=== PATIENT | female | born 1975 | race Caucasian/White ===

== ENCOUNTER 2016-07-13 16:16 | Day surgery (SDC) | payer BC, MEDICAID ==
[2016-07-13 16:45] LABS: Hematocrit 35.4 % (37.0-47.0); Mean Cell Volume 95.2 fl (78-100); Mean Corpuscular Hemoglobin 32.3 pg (27-31); Mean Corpuscular Hgb Conc 33.9 g/dl (32-36); Mean Platelet Volume 9.9 fl (6.0-9.5); Neutrophil # 2.1 K/mm3 (1.3-6.0); Neutrophil % 41.1 % (42-75.0); Platelet Count 224 K/mm3 (150-450); Red Blood Count 3.72 M/mm3 (4.2-5.4); Red Cell Distribution Width 12.5 % (11.5-14.0); White Blood Count 5.2 K/mm3 (4.0-10.5)
--- NOTE | 2016-07-13 16:48 | ERNOTE ---
ER Female HPI Date of Service: 07/13/16 Stated Complaint: ABNORMAL PERIOD Presenting Symptoms: pelvic pain, vaginal bleeding Time Seen by Provider: 07/13/16 16:23 Source: patient Exam Limitations: no limitations Immunizations: IMMUNIZATION HX Immunizations Up to Date Yes History of Influenza Vaccine Yes Hx Pneumococcal Vaccination No Allergies/Adverse Reactions: Allergies acetaminophen [From Percocet] Allergy (Unknown, Verified 04/13/16 12:49) oxycodone HCl [From Percocet] Allergy (Unknown, Verified 04/13/16 12:49) amoxicillin trihydrate [From Augmentin] Allergy (Verified 04/13/16 12:49) bacitracin [From Cortisporin] Allergy (Verified 04/13/16 12:49) bacitracin zinc [From Cortisporin] Allergy (Verified 04/13/16 12:49) hydrocortisone [From Cortisporin] Allergy (Verified 04/13/16 12:49) neomycin [From Cortisporin] Allergy (Verified 04/13/16 12:49) neomycin sulfate [From Cortisporin] Allergy (Verified 04/13/16 12:49) polymyxin B [From Cortisporin] Allergy (Verified 04/13/16 12:49) polymyxin B sulfate [From Cortisporin] Allergy (Verified 04/13/16 12:49) potassium clavula *RETIRED-11/25/12 [From Augmentin] Allergy (Verified 04/13/16 12:49) Sulfa (Sulfonamide Antibiotics) [Sulfa(Sulfonamide Antibiotics)] Allergy ( Verified 04/13/16 12:49) erythromycin base Adverse Reaction (Verified 04/13/16 12:49) Vomiting Home Medications: HOME MEDICATIONS Valacyclovir HCl [Valtrex] 1,000 mg PO DAILY 01/31/14 [Last Taken 11/20/14 08:00 ] Lansoprazole [Prevacid] 30 mg PO DAILY 09/07/15 [Last Taken Unknown] Levofloxacin [Levaquin] 500 mg PO DAILY 04/06/16 [Last Taken Unknown] Metoprolol Tartrate [Lopressor] 12.5 mg PO DAILY 04/06/16 [Last Taken Unknown] Gabapentin [Neurontin] 400 mg PO HS 04/13/16 [Last Taken Unknown] Guaifenesin/Codeine Phosphate [Guaifenesin-Codeine Liquid] 10 ml PO QID #118 liquid 04/13/16 [Last Taken Unknown] Levonorgestrel-Ethin Estradiol [Jolessa] 1 each PO DAILY 04/13/16 [Last Taken Unknown] Methylprednisolone [Medrol Dosepak] 1 mg PO DAILY #20 tab.ds.pk 04/13/16 [Last Taken Unknown] - History of Present Illness Narrative: Pt. comes in with c/o RLQ pin and severe vaginal bleeding since this morning. Pt. states that from the time she awoke to 12 noon she was soaking a pad or tampon every hour then after 12 noon was soaking a pad and tampon every 10 minutes. Pt. recently restarted her birthcontrol and had a period a week ago. Pt. denies any NVD or constipation. Pt. denies any recent illness, SOB, CP, prehospital treatment, alleviating factors, or aggravating factors. Pt. does state that she developed dizziness prior to arrival. Review of Systems - Review of Systems Constitutional: Present: no symptoms reported. Absent: recent illness, fever, chills, weakness, fatigue, malaise EYE: Present: no symptoms reported ENT: Present: no symptoms reported Respiratory: Present: no symptoms reported. Absent: shortness of breath, cough , wheezing Cardiology: Present: no symptoms reported. Absent: chest pain, palpitations, edema Gastrointestinal/Abdominal: Present: abdominal pain - RLQ. Absent: nausea, vomiting, diarrhea Genitourinary: Present: discharge - blood Musculoskeletal: Present: no symptoms reported. Absent: back pain, joint pain Skin: Present: no symptoms reported. Absent: rash, change in color Neurological: Present: no symptoms reported. Absent: headache, dizziness/light- headedness, numbness, tingling All Other Systems: All systems neg except as marked - Patient's Past Medical History Patient History - Medical: Anemia, GERD, Migraines Patient History - Cardiac/Respiratory: No pertinent hx Patient History - Cancer: No Hx of Cancer Patient History - Surgical Procedures: , D & C, Ear Tubes, Other Patient History - Other: None LMP (females 10-50): now LMP (Calendar): 04/04/16 - Social History Living Situations: home Abuse History: No History of abuse Psych History: Hx of Anxiety Smoking Status: Former smoker Alcohol Use: none Drug Use: none - Immunizations Immunizations Up to Date: Yes Hx Pneumococcal Vaccination: No History of Influenza Vaccine: Yes Physical Exam - Physical Exam General Appearance: Present: wd/wn, alert, no apparent distress Eye Exam: Normal inspection: bilateral, PERRL: bilateral, EOMI: bilateral Ears, Nose, Throat: Present: normal ENT inspection, normal pharynx Neck: Present: normal inspection, nontender. Absent: lymphadenopathy (R), lymphadenopathy (L) Respiratory: Present: no respiratory distress, normal breath sounds, no accessory muscle use, chest nontender, lungs clear Cardiovascular/Chest: Present: regular rate, rhythm, no murmur, normal peripheral pulses Gastrointestinal/Abdominal: Present: normal bowel sounds, tenderness - RLQ. Absent: distended, rebound, McBurney sign, Obturator sign, Radford sign, Psoas sign, mass, hernia Back Exam: Present: normal inspection, normal range of motion, no CVA tenderness , no vertebral tenderness Extremity Exam: Present: normal inspection, non-tender, normal range of motion, no edema Neurological Exam: Present: alert, oriented, normal mood/affect, no motor/ sensory deficits Skin Exam: Present: normal color, warm/dry. Absent: pallor, skin rash ED Progress - Date and Time Seen: Date and Time: 07/13/16 19:26 Pt. orthostatic BP 130 systolic sitting 122 systolic lying and 113 systolic standing. Discussed case with Dr Gordon and we will recheck H/H and he will be in to see pt. 07/13/16 20:29 Dr Gordon to see pt. This provider in room as Dr Gutiérrez examined and pt. and Dr Gutiérrez and I discussed care plan and it was decided pt. to have a D & C this evening. - Results and Orders Patient's Lab Results:: I have reviewed the patient's lab results. - Vital Signs Patient's Vital Signs:: I have reviewed the patient's vital signs. Vital Signs: Vital Signs 07/13/16 16:25 Temperature 37.3 C Pulse Rate 76 Respiratory 16 Rate Blood Pressure 113/78 O2 Sat by Pulse 99 Oximetry - CT/Ultrasound CT/Ultrasound Narrative: without abnormal findings on US no cul-de-sac or free fluid noted. Departure Clinical Impression: Menorrhagia Qualifiers: Menorrahagia type: premenopausal Qualified Code(s): N92.4 - Excessive bleeding in the premenopausal period - Departure Disposition: CH Condition: Fair Referrals: Sarah Barlow DO [Primary Care Provider] -
--- OUTSIDE RECORDS SUMMARY | 2016-07-13 16:57 | XMS REPORT | Summary of Care ---
:1975 Author Organization [facility] Address [address] [place] [address]- Care Team Providers Name Role Phone Sarah Barlow Primary Care Physician Encounter Date(s): 05/09/16 - 05/09/[address] [address] Discharge Disposition: 01 Discharged to Home or Self Care Attending Physician: Travis Solano MD Admitting Physician: Travis Solano MD Vital Signs No data available for this section Problem List Condition Effective Dates Status Health Status Informant Gestational diabetes(Confirmed) Active PVC's (premature ventricular Active contractions)(Confirmed) Tachycardia(Confirmed) Active Allergies, Adverse Reactions, Alerts Substance Reaction Severity Status erythromycin unknow Active Percocet 10/325 itching Active sulfa drugs unknown Active Medications atenolol 25 mg oral tablet 1 tab(s), Oral, BID, # 30 tab(s), 0 Refill(s), Start Date: 09/07/15 13:36:00 CDT Start Date: 09/07/15 Stop Date: 02/11/16 Status: CompletedAzurette 1 tab(s), Oral, Daily, 0 Refill(s), Start Date: 07/05/15 11:25:00 CDT Start Date: 07/05/15 Status: Orderedcefdinir Oral, 0 Refill(s), Start Date: 02/11/16 13:26:00 CDT Start Date: 02/11/16 Status: Orderedcyclobenzaprine Oral, 0 Refill(s), Start Date: 07/05/15 11:26:00 CDT Start Date: 07/05/15 Stop Date: 09/07/15 Status: CompletedFish Oil 1,200 mg=, Oral, Daily, 0 Refill(s), Start Date: 07/05/15 11:26:00 CDT Start Date: 07/05/15 Status: Orderedlansoprazole 30 mg, Oral, Daily, 0 Refill(s), Start Date: 07/05/15 11:26:00 CDT Start Date: 07/05/15 Status: OrderedmetFORMIN 750 mg oral tablet, extended release tab(s), Oral, Daily, 0 Refill(s), Start Date: 07/05/15 11:24:00 CDT Start Date: 07/05/15 Stop Date: 02/11/16 Status: CompletedValtrex 1 gm, Oral, Daily, 0 Refill(s), Start Date: 07/05/15 11:26:00 CDT Start Date: 07/05/15 Status: Ordered Results No data available for this section Immunizations No data available for this section Procedures Procedure Date Related Diagnosis Body Site Functional Endoscopic Sinus Surgery (Left)1 02/14/16 section2, 3 2012 Dilatation and curettage 2011 Cleft palate repair 1977 Myringotomy Nasal septoplasty 1auto-populated from documented surgical [id number], 2001, [id number] Social History No data available for this section Assessment and Plan No data available for this section
--- OUTSIDE RECORDS SUMMARY | 2016-07-13 16:57 | XMS REPORT | Continuity of Care Document ---
:1975 Author Organization [facility] ([facility]) Address [address] [place] [address] Phone [phone] Care Team Providers Name Role Phone Sarah Barlow Primary Care Provider [phone] Source Comments This disclosure is being made pursuant to the Care Everywhere program, applicable federal and state laws, and may not contain all informaitonavailable regarding this patient.[facility] ([facility]) Active Allergies and Adverse Reactions Allergen Noted Date Severity Reactions Comments Amoxicillin-Pot Clavulanate 01/05/2016 OTHER Erythromycin 01/05/2016 Stomach Pain Oxycodone-Acetaminophen 01/05/2016 Urticaria (Hives) Sulfa (Sulfonamide Antibiotics) 08/03/2010 Nausea & Vomiting Trees 01/05/2016 Rhinorrhea Current Medications Prescription Sig. Disp. Refills Start Date End Date Status ibuprofen 200 mg tablet Take 200 mg by Active mouth as needed. valACYclovir 1,000 mg Take 1,000 mg by Active tablet mouth daily. lansoprazole 30 mg Take 30 mg by Active capsule mouth daily. JOLESSA 0.15-30 mg-mcg 01/06/2016 Active 3MPk per tablet eszopiclone (LUNESTA) 3 03/09/2016 Active mg tablet HYDROcodone-acetaminoph 03/11/2016 Active en 5-325 mg per tablet mupirocin 2 % ointment 03/11/2016 Active CRISTI FE 05/12 (28) per 03/08/2016 Active tablet rizatriptan 10 mg 02/01/2016 Active tablet metoPROLol tartrate 25 Take 0.5 tablets 45 tablet 3 03/14/2016 Active mg tablet (12.5 mg total) by mouth 2 times daily. Active Problems Problem Noted Date PVC (premature ventricular contraction) 03/14/2016 Palpitations 01/18/2016 GERD (gastroesophageal reflux disease) 01/18/2016 Most Recent Encounters Date Type Specialty Providers Description 05/29/2016 Office Visit Otolaryngology Timothy Chisholm MD Subj: Upcoming Appt Reminder 05/24/2016 Telephone Heart and Vascular Kaye Hayden RN Chief Comp: Symptom Management Immunizations Name Dates Previously Given Next Due Influenza, PF 01/30/2011 Pneumococcal Polysaccharide, PPSV23 (Pneumovax 23) 01/30/2011 Social History Tobacco Use Types Packs/Day Years Used Date Former Smoker Cigarettes 0.5 Smokeless Tobacco: Never Used Alcohol Use Drinks/Week oz/Week Comments No Last Filed Vital Signs Vital Sign Reading Time Taken Blood Pressure 102/68 03/14/2016 12:29 PM 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 Pulse 80 03/14/2016 12:29 PM 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 Temperature 37.3 C (99.1 F) 07/02/2014 3:32 PM CDT Respiratory Rate 14 03/14/2016 12:29 PM 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 Height 1.524 m (5') 03/14/2016 12:29 PM 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 Weight 60.283 kg (132 lb 14.4 oz) 03/14/2016 12:29 PM 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 Body Mass Index 25.96 03/14/2016 12:29 PM 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 Oxygen Saturation 97% 08/03/2010 6:46 PM CDT Plan of Care Date Type Specialty Providers Description 08/18/2016 Wait List Otolaryngology 08/18/2016 Appointment Otolaryngology Timothy Chisholm MD Subj: Appointment [address] [facility] [place] [address] [phone] (Fax) 03/20/2017 Appointment Heart and Vascular Jodi Dia MD [address] [place] [address] [phone] (Fax) Subj: Appointment Lizabeth Bustamante MD [address] [place] [address] [phone] (Fax) Rescheduled Health Maintenance Due Date Last Done Comments Hepatitis B Vaccine (1 of 3 - Primary Series) 1975 Tdap Vaccine 02/01/1987 Lipid Disorder Screening 02/01/1994 MMR Vaccine 02/01/1994 Td Vaccine 02/01/1994 Cervical Cancer Screening 02/01/2006 05/24/1999 Influenza Vaccine: Seasonal (#1) 11/22/2015 01/30/2011 Mammogram 2016 Results from Last 3 Months Not on file
--- OUTSIDE RECORDS SUMMARY | 2016-07-13 16:58 | XMS REPORT | Summary of Care ---
:1975 Author Organization [facility] Address [address] [place] [address]- Care Team Providers Name Role Phone Sarah Barlow Primary Care Physician Encounter Date(s): 05/29/16 - 05/31/16 [facility] [address] [place] [address]- [facility] Discharge Disposition: 01 Discharged to Home or Self Care Attending Physician: Travis Solano MD Admitting Physician: Travis Solano MD Vital Signs Most recent to oldest [Reference Range]: 1 2 Temperature Temporal Artery [36-38 DegC] 36.9 DegC (05/29/16 11:31 AM) Heart Rate Monitored [60-100 bpm] 73 bpm 75 bpm (05/29/16 12:59 PM) (05/29/16 11:31 AM) Respiratory Rate [12-20 br/min] 16 br/min 16 br/min (05/29/16 12:59 PM) (05/29/16 11:31 AM) SpO2 98 % 97 % (05/29/16 12:59 PM) (05/29/16 11:31 AM) SpO2 Location Right hand Right hand (05/29/16 12:59 PM) (05/29/16 11:31 AM) Blood Pressure [90-130/60-90 mmHg] 116/58mmHg 128/72mmHg (05/29/16 12:59 PM) (05/29/16 11:31 AM) Problem List Condition Effective Dates Status Health Status Informant Gestational diabetes(Confirmed) Active PVC's (premature ventricular Active contractions)(Confirmed) Tachycardia(Confirmed) Active Allergies, Adverse Reactions, Alerts Substance Reaction Severity Status erythromycin Nausea Severe Active unknow Percocet 10/325 itching Active sulfa drugs diffculty breathing Severe Active unknown Medications atenolol 25 mg oral tablet 1 tab(s), Oral, BID, # 30 tab(s), 0 Refill(s), Start Date: 09/07/15 13:36:00 CDT Start Date: 09/07/15 Stop Date: 02/11/16 Status: CompletedAzurette 1 tab(s), Oral, Daily, 0 Refill(s), Start Date: 07/05/15 11:25:00 CDT Start Date: 07/05/15 Status: Orderedcefdinir Oral, 0 Refill(s), Start Date: 02/11/16 13:26:00 CDT Start Date: 02/11/16 Stop Date: 05/22/16 Status: Completedcyclobenzaprine Oral, 0 Refill(s), Start Date: 07/05/15 11:26:00 CDT Start Date: 07/05/15 Stop Date: 09/07/15 Status: CompletedFish Oil 1,200 mg=, Oral, Daily, 0 Refill(s), Start Date: 07/05/15 11:26:00 CDT Start Date: 07/05/15 Stop Date: 05/22/16 Status: Completedgabapentin 100 mg oral capsule 2-3 cap(s), Oral, HS, 0 Refill(s), Start Date: 05/22/16 12:47:00 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 Start Date: 05/22/16 Status: Orderedlansoprazole 30 mg, Oral, Daily, 0 Refill(s), Start Date: 07/05/15 11:26:00 CDT Start Date: 07/05/15 Status: OrderedmetFORMIN 750 mg oral tablet, extended release tab(s), Oral, Daily, 0 Refill(s), Start Date: 07/05/15 11:24:00 CDT Start Date: 07/05/15 Stop Date: 02/11/16 Status: Completedmetoprolol tartrate 25 mg oral tablet 0.5 tab(s), Oral, BID, 0 Refill(s), Start Date: 05/22/16 12:48:00 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 Start Date: 05/22/16 Status: OrderedValtrex 1 gm, Oral, Daily, 0 Refill(s), Start Date: 07/05/15 11:26:00 CDT Start Date: 07/05/15 Status: Ordered Results No data available for this section Immunizations No data available for this section Procedures Procedure Date Related Diagnosis Body Site Nerve Block - SN1 05/29/16 Functional Endoscopic Sinus Surgery (Left)2 02/14/16 section3, 4 2012 Dilatation and curettage 2011 Cleft palate repair 1978 Myringotomy Nasal septoplasty 1auto-populated from documented surgical [id number] from documented surgical [id number], 2001, Social History No data available for this section Assessment and Plan No data available for this section
--- OUTSIDE RECORDS SUMMARY | 2016-07-13 16:58 | XMS REPORT | Summary of Care ---
:1975 Author Organization [facility] Address [address] [place] [address] Care Team Providers Name Role Phone Sarha Barlow Primary Care Physician Encounter Date(s): 09/07/15 - 09/07/15 [facility] [address], [address] [place], [place] [address] Discharge Diagnosis: Cervical os stenosis Discharge Diagnosis: Cervical spinal stenosis Discharge Diagnosis: Cervical radiculopathy Discharge Disposition: 01 Discharged to Home or Self Care Attending Physician: Ousmane Epstein MD Referring Physician: Ousmane Epstein MD Vital Signs Most recent to oldest [Reference Range]: 1 Blood Pressure [90-130/60-90 mmHg] 107/48mmHg (09/07/15 1:32 PM) Mean Arterial Pressure, Cuff 68 mmHg (09/07/15 1:32 PM) Most recent to oldest [Reference Range]: 1 Height/Length Measured 152 cm (09/07/15 1:32 PM) Weight Dosing 62.10 kg1 (09/07/15 1:41 PM) Weight Measured 62.1 kg (09/07/15 1:32 PM) BSA Measured 1.59 m2 (09/07/15 1:32 PM) Body Mass Index Measured 26.88 kg/m2 (09/07/15 1:32 PM) 1Result Comment: This result was because the dosing weight was either not entered or it is>30 days old. This result is based off: Weight Measured September 07, 2015 13:32:00 CDT by Migdalia Turk LPN Problem List Condition Effective Dates Status Health Status Informant DM (diabetes mellitus), type Active 2(Confirmed) Tachycardia(Confirmed) Active Allergies, Adverse Reactions, Alerts Substance Reaction Severity Status Augmentin unknown Active erythromycin unknow Active Percocet 10/325 itching Active sulfa drugs unknown Active Medications atenolol 25 mg oral tablet 1 tab(s), Oral, BID, # 30 tab(s), 0 Refill(s), Start Date: 09/07/15 13:36:00 CDT Start Date: 09/07/15 Status: OrderedAzurette tab(s), Oral, Daily, 0 Refill(s), Start Date: 07/05/15 11:25:00 CDT Start Date: 07/05/15 Status: Orderedcyclobenzaprine Oral, 0 Refill(s), Start Date: 07/05/15 11:26:00 CDT Start Date: 07/05/15 Stop Date: 09/07/15 Status: CompletedFish Oil Oral, 0 Refill(s), Start Date: 07/05/15 11:26:00 CDT Start Date: 07/05/15 Status: Orderedlansoprazole Oral, Daily, 0 Refill(s), Start Date: 07/05/15 11:26:00 CDT Start Date: 07/05/15 Status: OrderedmetFORMIN 750 mg oral tablet, extended release tab(s), Oral, Daily, 0 Refill(s), Start Date: 07/05/15 11:24:00 CDT Start Date: 07/05/15 Status: OrderedValtrex Oral, 0 Refill(s), Start Date: 07/05/15 11:26:00 CDT Start Date: 07/05/15 Status: Ordered Results No data available for this section Immunizations No data available for this section Procedures Procedure Date Related Diagnosis Body Site section1 2012 Dilatation and curettage 2011 Cleft palate repair 1978 Myringotomy Nasal septoplasty 497[address], 2002, 2009 Social History No data available for this section Assessment and Plan No data available for this section
[2016-07-13 17:01] LABS: Prothrombin Time (Patient) 10.1 Seconds (9.4-11.4)
[2016-07-13 17:02] LABS: INR 0.97 INR (0.90-1.10); Partial Thrombolplastin Time 27.2 Seconds (24-32)
[2016-07-13 17:04] LABS: Albumin * 3.9 gm/dl (3.4-5.0); BUN/Creatinine Ratio 14.3 (9.0-21.6); Bilirubin, Total 0.2 mg/dL (0.0-1.1); Ca. Corrected For Albumin 8.9 mg/dL (8.4-10.2); Calcium * 9.1 mg/dL (7.9-10.9); Potassium 3.6 mmol/L (3.4-4.6); Total Protein 7.6 gm/dL (6.2-8.2)
[2016-07-13 17:11] LABS: Anion Gap 15.4 mmol/L (6.8-13.8); Carbon Dioxide 25.2 mmol/L (24-32.6)
[2016-07-13 19:00] LABS: Urine Bilirubin Negative (NEGATIVE); Urine Blood 25 /ul (NEGATIVE); Urine Ketone Negative (NEGATIVE); Urine Nitrite Negative (NEGATIVE); Urine Protein Negative (NEGATIVE); Urine Specific Gravity >=1.030 SP.GR. (1.005-1.010); Urine Urobilinogen Normal (NORMAL)
[2016-07-13 19:11] LABS: Urine Appearance Slightly Cloudy; Urine Bacteria TRACE; Urine Color Yellow; Urine RBC TRACE /hpf (0-5); Urine WBC None Seen /hpf (0-5)
[2016-07-13] MEDS ORDERED: RINGERS SOLUTION,LACTATED 1,000 ML IV ONE ×2 (19:17→21:40)
[2016-07-13 19:46] LABS: Hematocrit 33.8 % (37.0-47.0); Hemoglobin 11.4 gm/dL (12.5-16.0)
--- OUTSIDE RECORDS SUMMARY | 2016-07-13 21:00 | XMS REPORT | Continuity of Care Document ---
:1975 Author Organization [facility] ([facility]) Address [address] [place] [address] Phone [phone] Care Team Providers Name Role Phone Sarah Barlow Primary Care Provider [phone] Source Comments This disclosure is being made pursuant to the Care Everywhere program, applicable federal and state laws, and may not contain all informaitonavailable regarding this patient.[facility] ([facility]) Active Allergies and Adverse Reactions Allergen Noted [...] Taken Blood Pressure 102/68 03/14/2016 12:29 PM RIDING SILKS CUSTODIAN Pulse 80 03/14/2016 12:29 PM RIDING SILKS CUSTODIAN Temperature 37.3 C (99.1 F) 07/02/2014 3:32 PM CDT Respiratory Rate 14 03/14/2016 12:29 PM RIDING SILKS CUSTODIAN Height 1.524 m (5') 03/14/2016 12:29 PM RIDING SILKS CUSTODIAN Weight 60.283 kg (132 lb 14.4 oz) 03/14/2016 12:29 PM RIDING SILKS CUSTODIAN Body Mass Index 25.96 03/14/2016 12:29 PM RIDING SILKS CUSTODIAN Oxygen Saturation 97% 08/03/2010 6:46 PM CDT Plan of Care Date Type Specialty Providers Description 08/18/2016 Wait List Otolaryngology 08/18/2016 Appointment Otolaryngology Timothy Chisholm MD Subj: Appointment [address] [facility] [place] [address] [phone] (Fax) 03/20/2017 Appointment Heart and Vascular Jodi Dia MD [address] [place] [address] [phone] (Fax) Subj: Appointment Lizabeth Bustamante MD [address] [place] [address] [phone] (Fax) Rescheduled Health Maintenance Due Date Last Done Comments Hepatitis B Vaccine (1 of 3 - Primary Series) 1975 Tdap Vaccine 02/01/1987 Lipid Disorder Screening 02/01/1994 MMR Vaccine 02/01/1994 Td Vaccine 02/01/1994 Cervical Cancer Screening 02/01/2006 05/24/1999 Influenza Vaccine: Seasonal (#1) 11/22/2015 01/30/2011 Mammogram 2016 Results from Last 3 Months Not on file
--- NOTE | 2016-07-13 21:02 | HP ---
Chief Complaint - Chief Complaint Date of Service: 07/13/16 Time of Service: 20:35 Chief Complaint: heavy vaginal bleeding History of Present Illness: 41 yo G 9 P 3154 with LMP 07/06/16 on 3 month cycles by using continuous OCP presents to [facility] ER complaining of heavy vaginal bleeding for the past week which became extremely heavy this afternoon. Patient states she has been bleeding through a heavy duty tampon and pad every 30 min since this afternoon. She complains of lightheadedness with activity and weakness. She denies LOC, chance of , or missing any of her OCP. - Patient's Past Medical History Patient History - Medical: Anemia, GERD, Migraines, Renal Failure, Other - neuralgia, PCOS, thyroid nodule, cleft palate, migraines, h/o gestational DM Patient History - Cardiac/Respiratory: No pertinent hx Patient History - Cancer: No Hx of Cancer Patient History - Surgical Procedures: - x4, D & C - Suction, Ear Tubes, Other, ENT - cleft palate repair, septoplasty, thyroid bx Patient History - Other: None LMP (females 10-50): last week LMP (Calendar): 07/06/16 - Family History Family History:: no untoward family reactions to anesthesia, no familial bleeding tendencies, no family history of clotting disorders, no family history of premature - Social History Living Situations: home Abuse History: No History of abuse Psych History: Hx of Anxiety, Current tx/ever been on anti-depressants or anti- anxiety meds - yes Does anyone smoke in the home?: No Smoking Status: Former smoker - quit in 2007 Have you smoked in the past 12 months: No Do you dip or chew tobacco: No Alcohol Use: none Drug Use: none - Immunizations Immunizations Up to Date: Yes Hx Pneumococcal Vaccination: No History of Influenza Vaccine: Yes Review Of Systems (GEN) - Review of Systems Generalized/Overall Review: Present: Weakness, Fatigue EENTM: Present: No Symptoms Reported Respiratory: Present: No Symptoms Reported Cardiac: Present: No Symptoms Reported Abdominal: Present: No Symptoms Reported Genitourinary: Present: Other - See HPI Musculoskeletal: Present: No Symptoms Reported Neurological: Present: Headache, Anxiety, Weakness, Other - migraines, difficulty sleeping Skin: Present: No Symptoms Reported Endocrine: Present: No Symptoms Reported Immunizations: IMMUNIZATION HX Immunizations Up to Date Yes History of Influenza Vaccine Yes Hx Pneumococcal Vaccination No Allergies/Adverse Reactions: Allergies Allergy/AdvReac Type Severity Reaction Status Date / Time acetaminophen [From Percocet] Allergy Unknown Verified 04/13/16 12:49 oxycodone HCl [From Percocet] Allergy Unknown Verified 04/13/16 12:49 amoxicillin trihydrate Allergy Verified 04/13/16 12:49 [From Augmentin] bacitracin [From Cortisporin] Allergy Verified 04/13/16 12:49 bacitracin zinc Allergy Verified 04/13/16 12:49 [From Cortisporin] hydrocortisone Allergy Verified 04/13/16 12:49 [From Cortisporin] neomycin [From Cortisporin] Allergy Verified 04/13/16 12:49 neomycin sulfate Allergy Verified 04/13/16 12:49 [From Cortisporin] polymyxin B Allergy Verified 04/13/16 12:49 [From Cortisporin] polymyxin B sulfate Allergy Verified 04/13/16 12:49 [From Cortisporin] potassium clavula Allergy Verified 04/13/16 12:49 *RETIRED-11/25/12 [From Augmentin] Sulfa (Sulfonamide Allergy Verified 04/13/16 12:49 Antibiotics) [Sulfa(Sulfonamide Antibiotics)] erythromycin base AdvReac Vomiting Verified 04/13/16 12:49 Home Medications: HOME MEDICATIONS Valacyclovir HCl [Valtrex] 1,000 mg PO DAILY 01/31/14 [Last Taken 11/20/14 08:00 ] Lansoprazole [Prevacid] 30 mg PO DAILY 09/07/15 [Last Taken Unknown] Metoprolol Tartrate [Lopressor] 12.5 mg PO BID 04/06/16 [Last Taken Unknown] Gabapentin [Neurontin] 400 mg PO HS 04/13/16 [Last Taken Unknown] Norethindrone AC-Eth Estradiol [Loestrin 21 1-20 Tablet] 1 each PO DAILY [Last Taken Unknown] Trazodone HCl [Oleptro ER] 150 mg PO HS 07/13/16 [Last Taken Unknown] Venlafaxine HCl [Effexor Xr] 75 mg PO 07/13/16 [Last Taken Unknown] Exam - Exam Vital Signs: Vital Signs - Last Taken Temp 37.3 C 07/13/16 18:13 Pulse 73 07/13/16 19:46 Resp 15 07/13/16 19:46 BP 115/80 07/13/16 19:46 Pulse Ox 97 07/13/16 19:46 Constitutional: Present: Alert, Oriented x3, Cooperative, Well developed, Well nourished, No distress ENT Exam: Present: hearing grossly normal Back Exam: Present: no CVA tenderness Breasts: Present: Exam deferred Respiratory: Present: lungs clear, normal breath sounds Cardiovascular/Chest: Present: normal peripheral pulses, regular rate, rhythm, no edema, no murmur Abdomen: Present: soft, nontender, nondistended, no rebound tenderness, no masses /Rectal: Present: External genitalia normal, Other - small cervix with steady flow of bright red bleeding and clots Extremity: Present: non-tender, no pedal edema, no calf tenderness Skin Exam: Present: normal color, warm/dry, no cyanosis Neurologic: Present: oriented x 3 Appearance: Present: appropriate appearance, appropriate insight, neat Eye contact: Present: cooperative, good eye contact, normal speech Thoughts: Present: normal thought pattern Diagnostic Studies: Abnormal Lab Results 07/13/16 07/13/16 07/13/16 Range/Units 16:44 16:44 18:56 RBC 3.72 L (4.2-5.4) M/mm3 Hgb 12.0 L (12.5-16.0) gm/dL Hct 35.4 L (37.0-47.0) % MCH 32.3 H (27-31) pg MPV 9.9 H (6.0-9.5) fl Neutrophils % 41.1 L (42-75.0) % Monocytes % 10.6 H (0.0-9) % Anion Gap 15.4 H (6.8-13.8) mmol/L Alkaline Phosphatase 49 L (50-170) U/L Urine Blood 25 H (NEGATIVE) /ul 07/13/16 Range/Units 19:42 RBC (4.2-5.4) M/mm3 Hgb 11.4 L (12.5-16.0) gm/dL Hct 33.8 L (37.0-47.0) % MCH (27-31) pg MPV (6.0-9.5) fl Neutrophils % (42-75.0) % Monocytes % (0.0-9) % Anion Gap (6.8-13.8) mmol/L Alkaline Phosphatase (50-170) U/L Urine Blood (NEGATIVE) /ul Laboratory Results WBC 5.2 K/mm3 (4.0-10.5) 07/13/16 16:44 RBC 3.72 M/mm3 (4.2-5.4) L 07/13/16 16:44 Hgb 11.4 gm/dL (12.5-16.0) L 07/13/16 19:42 Hct 33.8 % (37.0-47.0) L 07/13/16 19:42 MCV 95.2 fl (78-100) 07/13/16 16:44 MCH 32.3 pg (27-31) H 07/13/16 16:44 MCHC 33.9 g/dl (32-36) 07/13/16 16:44 RDW 12.5 % (11.5-14.0) 07/13/16 16:44 Plt Count 224 K/mm3 (150-450) 07/13/16 16:44 MPV 9.9 fl (6.0-9.5) H 07/13/16 16:44 Immature Gran % (Auto) 0.40 % (0.001-0.429) 07/13/16 16:44 Immature Gran # (Auto) 0.02 K/mm3 (0.000-0.0310) 07/13/16 16:44 Neutrophils % 41.1 % (42-75.0) L 07/13/16 16:44 Lymphocytes % 45.0 % (20-51) 07/13/16 16:44 Monocytes % 10.6 % (0.0-9) H 07/13/16 16:44 Eosinophils % 2.3 % (0.0-3.0) 07/13/16 16:44 Basophils % 0.6 % (0.0-1.0) 07/13/16 16:44 Nucleated RBC % 0.0 k/mm3 (0-1) 07/13/16 16:44 Neutrophils # 2.1 K/mm3 (1.3-6.0) 07/13/16 16:44 Lymphocytes # 2.3 k/mm3 (1.5-3.5) 07/13/16 16:44 Monocytes # 0.6 k/mm3 (0.0-1.0) 07/13/16 16:44 Eosinophils # 0.1 k/mm3 (0.0-0.7) 07/13/16 16:44 Absolute Basophils 0.0 k/mm3 (0.0-0.1) 07/13/16 16:44 PT 10.1 Seconds (9.4-11.4) 07/13/16 16:44 INR (Anticoag Therapy) 0.97 INR (0.90-1.10) 07/13/16 16:44 PTT ([place]) 27.2 Seconds (24-32) 07/13/16 16:44 Sodium 142 mmol/L (132-142) 07/13/16 16:44 Plasma Sodium 142 mmol/L (130-142) 07/13/16 16:44 Potassium 3.6 mmol/L (3.4-4.6) 07/13/16 16:44 Chloride 105 mmol/L (97-106) 07/13/16 16:44 Carbon Dioxide 25.2 mmol/L (24-32.6) 07/13/16 16:44 Anion Gap 15.4 mmol/L (6.8-13.8) H 07/13/16 16:44 BUN 10 mg/dL (3-23) 07/13/16 16:44 Creatinine 0.70 mg/dL (0.4-1.4) 07/13/16 16:44 Est GFR (Non-Af Amer) 99 mL/min (60-130) 07/13/16 16:44 BUN/Creatinine Ratio 14.3 (9.0-21.6) 07/13/16 16:44 Random Glucose 109 mg/dL (70-110) 07/13/16 16:44 Calcium 9.1 mg/dL (7.9-10.9) 07/13/16 16:44 Calcium Adj for Albumin 8.9 mg/dL (8.4-10.2) 07/13/16 16:44 Total Bilirubin 0.2 mg/dL (0.0-1.1) 07/13/16 16:44 AST 16 U/L (0-48) 07/13/16 16:44 ALT 35 U/L (19-67) 07/13/16 16:44 Alkaline Phosphatase 49 U/L (50-170) L 07/13/16 16:44 Total Protein 7.6 gm/dL (6.2-8.2) 07/13/16 16:44 Albumin 3.9 gm/dl (3.4-5.0) 07/13/16 16:44 Urine Color Yellow 07/13/16 18:56 Urine Appearance Slightly cloudy 07/13/16 18:56 Urine pH 6.0 pH (5.0-7.0) 07/13/16 18:56 Ur Specific [place] >=1.030 SP.GR. (1.005-1.010) 07/13/16 18:56 Urine Protein Negative mg/dL (NEGATIVE) 07/13/16 18:56 Urine Glucose (UA) Negative mg/dL (NEGATIVE) 07/13/16 18:56 Urine Ketones Negative mg/dL (NEGATIVE) 07/13/16 18:56 Urine Blood 25 /ul (NEGATIVE) H 07/13/16 18:56 Urine Nitrate Negative (NEGATIVE) 07/13/16 18:56 Urine Bilirubin Negative mg/dl (NEGATIVE) 07/13/16 18:56 Urine Urobilinogen Normal EU/dl (NORMAL) 07/13/16 18:56 Ur Leukocyte Esterase Negative /ul (NEGATIVE) 07/13/16 18:56 Urine RBC Trace /hpf (0-5) 07/13/16 18:56 Urine WBC None seen /hpf (0-5) 07/13/16 18:56 Ur Epithelial Cells 0-5 /hpf (0-5) 07/13/16 18:56 Urine Bacteria Trace (NONE) 07/13/16 18:56 Urine Culture Comments Culture to follow 07/13/16 18:56 Pelvic ultrasound unremarkable with 9cm uterus and 8mm endometrial stripe. Assessment/Plan - Assessment/Plan (1) Menorrhagia with regular cycle Assessment: Orthostatic BP positive with persistent heavy bleeding. R/b/a to Dilation & Curettage discussed with patient with possible need to proceed with hysterectomy if bleeding does not slow down/stop. All questions answered. She understands that if she has to have a hysterectomy she will be sterile and unable to give to anymore children. She desires to proceed with D&C. Problem: Acute
[2016-07-13] MEDS ORDERED: LIDOCAINE HCL/EPINEPHRINE 50 ML VIAL IJ ONE (21:50)
[2016-07-13] MEDS ORDERED: HYDROcodone/ACETAMINOPHEN 1 EACH TABLET PO ONE ×2 (22:34→23:07)
--- NOTE | 2016-07-13 22:40 | OR ---
Operative Report - Dictated Report Narrative: DATE OF PROCEDURE: 07/13/2016 INDICATION: 41-year-old with severe menometrorrhagia and symptomatic hypovolemia presents to the ER for treatment PREOPERATIVE DIAGNOSIS: Menometrorrhagia POSTOPERATIVE DIAGNOSIS: Same PROCEDURE: Hysteroscopy, D&C SURGEON: Power Gutiérrez D.O. HAMMER RUNNER: None ANESTHESIA: IV sedation, Paracervical block ESTIMATED BLOOD LOSS: minimal URINE OUTPUT: not recorded FLUID REPLACEMENT: 600 ml of crystalloid FINDINGS: 10 week size boggy uterus with minimal clots at the time of surgery, cervical os dilated to [address] [place] SPECIMEN(S): Endometrial curettings TECHNIQUE: The patient was taken to the operating room and placed in dorsal lithotomy position after adequate IV sedation was obtained. After sterile prep and drape, the anterior lip of the cervix was grasped with a long Allis clamp. A paracervical block was given using a 1% lidocaine with epinephrine solution. The uterus sounded to 10 cm. Using a #2 curet, the entire uterine cavity was curettaged. Small amount of clot/tissue was obtained. Sponge, lap, instrument , needle count correct x 2. DISPOSITION: The patient was transferred to the post anesthesia care unit in good condition.
[2016-07-13] MEDS ORDERED: HYDROcodone/ACETAMINOPHEN 1 EACH TABLET ONE (22:53)
[2016-07-13] MEDS ORDERED: IBUPROFEN 800 MG TABLET PO ONE ×2 (23:00→23:07)
[2016-07-13] MEDS ORDERED: IBUPROFEN 800 MG TABLET ONE (23:03)
[2016-07-13 23:18] VITALS: BP 149/60
== END 2016-07-13 20:56 | disposition home or self-care (01) ==
LOC: ER 16:16 → AMB 20:55
PROVIDERS: ATTEND Obstetrics & Gynecology
PROC: 0UDB7ZX Extraction of Endometrium, Via Natural or Artificial Opening, Diagnostic (ICD-10-PCS; principal; 2016-07-13 21:07)
DX: N92.1 Excessive and frequent menstruation with irregular cycle (principal); E86.1 Hypovolemia; K21.9 Gastro-esophageal reflux disease without esophagitis; D64.9 Anemia, unspecified; Z87.891 Personal history of nicotine dependence; Z68.24 Body mass index [BMI] 24.0-24.9, adult

== ENCOUNTER 2016-08-30 06:48 | Day surgery (SDC) | payer BC, MEDICAID ==
[~2016-08-30 06:48] MED LIST: ceFAZolin SODIUM 1 GM in DEXTROSE 5 % IN WATER 100 ML IV PRN
--- OUTSIDE RECORDS SUMMARY | 2016-08-30 06:52 | XMS REPORT | Continuity of Care Document ---
:1975 Author Organization [facility] ([facility]) Address [address] [place] [address] Phone [phone] Care Team Providers Name Role Phone Sarah Barlow Primary Care Provider [phone] Source Comments This disclosure is being made pursuant to the Care Everywhere program, applicable federal and state laws, and may not contain all informaitonavailable regarding this patient.[facility] ([facility]) Active Allergies and Adverse Reactions Allergen Noted Date Severity Reactions Comments Amoxicillin-Pot Clavulanate 01/05/2016 OTHER Erythromycin 01/05/2016 Stomach Pain Oxycodone-Acetaminophen 01/05/2016 Urticaria (Hives) Sulfa (Sulfonamide Antibiotics) 08/03/2010 Nausea & Vomiting Trees 01/05/2016 Rhinorrhea Current Medications Prescription Sig. Disp. Refills Start Date End Date Status ibuprofen 200 mg Take 200 mg by Active tablet mouth as needed. valACYclovir 1,000 Take 1,000 mg Active mg tablet by mouth daily. lansoprazole 30 mg Take 30 mg by Active capsule mouth daily. JOLESSA 0.15-30 01/06/2016 Active mg-mcg 3MPk per tablet eszopiclone 03/09/2016 Active (LUNESTA) 3 mg tablet HYDROcodone-acetami 03/11/2016 Active nophen 5-325 mg per tablet mupirocin 2 % 03/11/2016 Active ointment CRISTI FE 05/12 (28) 03/08/2016 Active per tablet rizatriptan 10 mg 02/01/2016 Active tablet metoPROLol tartrate Take 0.5 90 tablet 2 08/17/2016 Active 25 mg tablet tablets (12.5 mg total) by mouth 2 times daily. metoPROLol tartrate Take 0.5 45 tablet 3 03/14/2016 08/17/2016 Discontinued 25 mg tablet tablets (12.5 mg total) by mouth 2 times daily. Active Problems Problem Noted Date PVC (premature ventricular contraction) 03/14/2016 Palpitations 01/18/2016 GERD (gastroesophageal reflux disease) 01/18/2016 Most Recent Encounters Date Type Specialty Providers Description 08/18/2016 Office Visit Otolaryngology Timothy Chisholm MD Subj: Upcoming Appt Reminder 08/17/2016 Refill Heart and Vascular Tatyana Benitez RN Dx: PVC (premature ventricular contraction) (Primary Dx) 08/16/2016 Telephone Psychiatry Bobbi Rome RN Chief Comp: Appointment Info 08/16/2016 Telephone Psychiatry Bobbi Rome RN Chief Comp: Appointment Info Immunizations Name Dates Previously Given Next Due Influenza, PF 01/30/2011 Pneumococcal Polysaccharide, PPSV23 (Pneumovax 23) 01/30/2011 Social History Tobacco Use Types Packs/Day Years Used Date Former Smoker Cigarettes 0.5 Smokeless Tobacco: Never Used Alcohol Use Drinks/Week oz/Week Comments No Last Filed Vital Signs Vital Sign Reading Time Taken Blood Pressure 102/68 03/14/2016 12:29 PM EXHAUST AND MUFFLER REPAIRER Pulse 80 03/14/2016 12:29 PM EXHAUST AND MUFFLER REPAIRER Temperature 37.3 C (99.1 F) 07/02/2014 3:32 PM CDT Respiratory Rate 14 03/14/2016 12:29 PM EXHAUST AND MUFFLER REPAIRER Height 1.524 m (5') 03/14/2016 12:29 PM EXHAUST AND MUFFLER REPAIRER Weight 60.283 kg (132 lb 14.4 oz) 03/14/2016 12:29 PM EXHAUST AND MUFFLER REPAIRER Body Mass Index 25.96 03/14/2016 12:29 PM EXHAUST AND MUFFLER REPAIRER Oxygen Saturation 97% 08/03/2010 6:46 PM CDT Plan of Care Date Type Specialty Providers Description 03/20/2017 Appointment Heart and Vascular El Jodi Edward MD [address] [place] [address] [phone] (Fax) Subj: Appointment Lizabeth Bustamante MD [address] [place] [address] [phone] (Fax) Rescheduled Health Maintenance Due Date Last Done Comments Hepatitis B Vaccine (1 of 3 - Primary Series) 1975 Tdap Vaccine 02/01/1987 Lipid Disorder Screening 02/01/1994 MMR Vaccine 02/01/1994 Td Vaccine 02/01/1994 Cervical Cancer Screening 02/01/2006 05/24/1999 Mammogram 2016 Influenza Vaccine: Seasonal (Season Ended) 2016 01/30/2011 Results from Last 3 Months Not on file
[2016-08-30] MEDS ORDERED: RINGERS SOLUTION,LACTATED 1,000 ML IV ONE (07:23)
[2016-08-30] MEDS ORDERED: LIDOCAINE HCL/EPINEPHRINE 50 ML VIAL IJ ONE ×2 (08:05)
--- NOTE | 2016-08-30 08:59 | OR ---
Operative Report - Dictated Report Narrative: INDICATION: 41 year old female with dysmenorrhea and menorrhagia unresponsive to conservative therapy also desiring sterilization PREOPERATIVE DIAGNOSIS: Dysmenorrhea and menorrhagia unresponsive to conservative therapy, desires permanent sterilization POSTOPERATIVE DIAGNOSIS: Same OPERATION: Laparoscopic bilateral tubal fulguration, diagnostic hysteroscopy, NovaSure endometrial ablation SURGEON: Nikolas Gutiérrez D.O. INSTALLER TECHNICIAN: None ANESTHESIA: General ESTIMATED BLOOD LOSS: Minimal FLUID REPLACEMENT: 600 mL URINE OUTPUT: Not measured FINDINGS: 10 week size uterus prolapsed to the introitus with left round ligament adherent to the anterior abdominal wall, blood within the abdominal cavity prior to placing any ports, normal-appearing tubes and ovaries, omental adhesions to the anterior abdominal wall at the level of the umbilicus SPECIMEN(S): None DRAINS: none TECHNIQUE: The patient was taken to the operating room and placed in dorsal lithotomy position after adequate general anesthesia was obtained. The anterior lip of the cervix was grasped with a long Allis clamp and a Valchev manipulator was inserted into the cervical canal and attached to the Allis clamp as a means to manipulate the uterus. The bladder was drained prior to patient entering the OR. Gloves were changed and attention was turned to the abdomen where the umbilicus and suprapubic region were injected with a 1% lidocaine epinephrine solution through the layers of the abdomen. A scalpel was used to score the skin and a 12 mm non-bladed trocar was inserted via direct technique under direct visualization through the umbilical incision. Pneumoperitoneum was created with CO2 gas. A 5 mm non-bladed trocar was inserted suprapubically in a similar fashion. Through these 2 ports the surgery was carried out with findings as noted above. The right fallopian tube was identified and followed out to the fimbriated end. Approximately 3 cm of the fallopian tube was coagulated with the Kleppinger's approximately 2 cm from the cornual region. The exact same was done on the patient's left side. The CO2 gas was removed from the abdominal cavity. Trochars were removed under direct visualization. The skin of both incisions was closed with 4-0 Monocryl. Dermabond was placed over the incisions. Attention was turned to the pelvis where a paracervical block was given using 1 % lidocaine with epinephrine. A 5 mm hysteroscope was inserted through the cervical canal into the uterine cavity with findings as noted above. The uterus was sounded to 10cm with a cervical length measured at 4cm. The NovaSure device was inserted into the uterine cavity with a cavity width measurement of 2.8. After cavity assessment, the NovaSure device was deployed with a total ablation time of 95 seconds. The hysteroscope was reinserted into the uterine cavity showing a thorough burn of the entire cavity. All instruments were removed from the cervix and vagina. Sponge, lap, instrument, and needle count were correct x 2. DISPOSITION: The patient was awakened and transferred to post anesthesia care unit in good condition.
[2016-08-30] MEDS ORDERED: MORPHINE SULFATE 2 MG/ML DISP.SYRIN IV PRN (09:59)
[2016-08-30] MEDS ORDERED: IBUPROFEN 800 MG TABLET PO PRN (09:59)
[2016-08-30] MEDS ORDERED: oxyCODONE HCL/ACETAMINOPHEN 1 TAB TABLET PO PRN (10:02)
[2016-08-30] MEDS: RINGERS SOLUTION,LACTATED 1,000 ML IV PRN ×2 (11:00→11:25)
[2016-08-30 11:30] VITALS: BP 118/73
== END 2016-08-30 06:49 | disposition home or self-care (01) ==
LOC: AMB 06:48
PROVIDERS: ATTEND Obstetrics & Gynecology
PROC: 0U574ZZ Destruction of Bilateral Fallopian Tubes, Percutaneous Endoscopic Approach (ICD-10-PCS; principal; 2016-08-30 08:00)
PROC: 0U5B8ZZ Destruction of Endometrium, Via Natural or Artificial Opening Endoscopic (ICD-10-PCS; 2016-08-30 08:00)
DX: Z30.2 Encounter for sterilization (principal); N92.0 Excessive and frequent menstruation with regular cycle; D64.9 Anemia, unspecified; K21.9 Gastro-esophageal reflux disease without esophagitis; F41.1 Generalized anxiety disorder; Z87.891 Personal history of nicotine dependence; Z68.23 Body mass index [BMI] 23.0-23.9, adult

== ENCOUNTER 2016-08-30 17:03 | Emergency (ER) | payer BC, MEDICAID ==
[2016-08-30 17:58] LABS: Hematocrit 39.6 % (37.0-47.0); Hemoglobin 13.7 gm/dL (12.5-16.0); Mean Cell Volume 94.3 fl (78-100); Mean Corpuscular Hemoglobin 32.6 pg (27-31); Mean Corpuscular Hgb Conc 34.6 g/dl (32-36); Mean Platelet Volume 10.5 fl (6.0-9.5); Neutrophil % 91.8 % (42-75.0); Platelet Count 203 K/mm3 (150-450); Red Cell Distribution Width 12.2 % (11.5-14.0); White Blood Count 6.5 K/mm3 (4.0-10.5)
[2016-08-30] MEDS ORDERED: oxyCODONE HCL/ACETAMINOPHEN 1 TAB TABLET PO ONE (18:20)
--- OUTSIDE RECORDS SUMMARY | 2016-08-30 18:25 | XMS REPORT | Continuity of Care Document ---
:1975 Author Organization [facility] ([facility]) Address [address] [place] [address] Phone [phone] Care Team Providers Name Role Phone Sarah Barlow Primary Care Provider [phone] Source Comments This disclosure is being made pursuant to the Care Everywhere program, applicable federal and state laws, and may not contain all informaitonavailable regarding this patient.[facility] ([facility]) Active Allergies and Adverse Reactions Allergen Noted [...] Taken Blood Pressure 102/68 03/14/2016 12:29 PM GLOVE BOARDER Pulse 80 03/14/2016 12:29 PM GLOVE BOARDER Temperature 37.3 C (99.1 F) 07/02/2014 3:32 PM CDT Respiratory Rate 14 03/14/2016 12:29 PM GLOVE BOARDER Height 1.524 m (5') 03/14/2016 12:29 PM GLOVE BOARDER Weight 60.283 kg (132 lb 14.4 oz) 03/14/2016 12:29 PM GLOVE BOARDER Body Mass Index 25.96 03/14/2016 12:29 PM GLOVE BOARDER Oxygen Saturation 97% 08/03/2010 6:46 PM CDT Plan of Care Date Type Specialty Providers Description 03/20/2017 Appointment Heart and Vascular El Jodi Edward MD [address] [place] [address] [phone] (Fax) Subj: Appointment Lizabeth Bustamante MD [address] [place] [address] [phone] (Fax) Rescheduled Health Maintenance Due Date Last Done Comments Hepatitis B Vaccine (1 of 3 - Primary Series) 1975 Tdap Vaccine 02/01/1987 Lipid Disorder Screening 02/01/1994 MMR Vaccine 02/01/1994 Td Vaccine 02/01/1994 Cervical Cancer Screening 02/01/2006 05/24/1999 Mammogram 2016 Influenza Vaccine: Seasonal (Season Ended) 2016 01/30/2011 Results from Last 3 Months Not on file
[2016-08-30] MEDS ORDERED: DIATRIZOATE MEGLU/DIATRIZO SOD 30 ML BTL PO ONE (18:29)
--- NOTE | 2016-08-30 18:29 | ERNOTE ---
Dyspnea - Date Date of Service: 08/30/16 - General Presenting Symptoms: difficulty of breathing, wheezing Time Seen by Provider: 08/30/16 18:07 Source: patient Exam Limitations: no limitations - Immun/Allergies/Home Medications Immunizations: IMMUNIZATION HX Immunizations Up to Date Yes History of Influenza Vaccine Yes Hx Pneumococcal Vaccination No Allergies/Adverse Reactions: Allergies bacitracin [From Cortisporin] Allergy (Verified 08/30/16 17:19) bacitracin zinc [From Cortisporin] Allergy (Verified 08/30/16 17:19) hydrocortisone [From Cortisporin] Allergy (Verified 08/30/16 17:19) neomycin [From Cortisporin] Allergy (Verified 08/30/16 17:19) neomycin sulfate [From Cortisporin] Allergy (Verified 08/30/16 17:19) polymyxin B [From Cortisporin] Allergy (Verified 08/30/16 17:19) polymyxin B sulfate [From Cortisporin] Allergy (Verified 08/30/16 17:19) acetaminophen [From Percocet] Adverse Reaction (Mild, Verified 08/30/16 17:19) Itching amoxicillin trihydrate [From Augmentin] Adverse Reaction (Mild, Verified 17:19) Nausea erythromycin base Adverse Reaction (Mild, Verified 08/30/16 17:19) GI UPSET, RASH oxycodone HCl [From Percocet] Adverse Reaction (Mild, Verified 08/30/16 17:19) Itching potassium clavula *RETIRED-11/25/12 [From Augmentin] Adverse Reaction (Mild, Verified 08/30/16 17:19) Nausea Sulfa (Sulfonamide Antibiotics) [Sulfa(Sulfonamide Antibiotics)] Adverse Reaction (Mild, Verified 08/30/16 17:19) RASH, VOMITING Home Medications: HOME MEDICATIONS valACYclovir HCL [Valtrex] 1,000 mg PO DAILY 01/31/14 [Last Taken 11/20/14 08:00 ] Lansoprazole [Prevacid] 30 mg PO DAILY 09/07/15 [Last Taken Unknown] Metoprolol Tartrate [Lopressor] 25 mg PO DAILY 04/06/16 [Last Taken 08/30/16 06: 15] Venlafaxine HCl [Effexor Xr] 75 mg PO DAILY 07/13/16 [Last Taken Unknown] Levonorgestrel-Ethin Estradiol [Jolessa] 1 each PO DAILY 08/24/16 [Last Taken Unknown] Prazosin HCl [Minipress] 1 mg PO DAILY 08/24/16 [Last Taken Unknown] Rizatriptan Benzoate [Maxalt] 10 mg PO DAILY PRN 08/24/16 [Last Taken Unknown] oxyCODONE HCL/ACETAMINOPHEN [Percocet 5 MG/325 MG] 1 tab PO Q4H PRN #20 tablet 08/30/16 [Last Taken Unknown] - History of Present Illness Narrative: Pt. comes in with c/o RLL pain in her lungs upper abdomen since about 4 this afternoon. Pt. was seen here for laproscopic tubal ligation and endometrial ablation. Pt. states that she had sudden severe pain when sitting up today. Pt. states that she also had SOB when this pain occurred and the SOB has continued even after. Review of Systems - Review of Systems Constitutional: Present: no symptoms reported. Absent: recent illness, fever, chills, weakness, fatigue, malaise EYE: Present: no symptoms reported ENT: Present: no symptoms reported Respiratory: Present: shortness of breath. Absent: cough, wheezing Cardiology: Present: chest pain - RLL. Absent: palpitations, edema Gastrointestinal/Abdominal: Present: abdominal pain - RUQ. Absent: nausea, vomiting, diarrhea Genitourinary: Present: no symptoms reported Musculoskeletal: Present: no symptoms reported. Absent: back pain, neck pain, joint pain Skin: Present: no symptoms reported Neurological: Present: no symptoms reported. Absent: headache, dizziness/light- headedness, numbness, tingling All Other Systems: All systems neg except as marked - Patient's Past Medical History Patient History - Medical: Anemia, Anxiety, GERD, Migraines, Renal Failure, UTI' S, Other Patient History - Cardiac/Respiratory: Hypertension Patient History - Cancer: No Hx of Cancer Patient History - Surgical Procedures: , D & C, Ear Tubes, Tubal Ligation, Other, ENT Patient History - Other: None LMP (Calendar): 08/17/16 - Family History Mother Family History - Medical: Diabetes Type 2 Family History - Cardiac/Respiratory: No pertinent hx Family History - Cancer: No pertinent family hx Father Family History - Medical: No pertinent hx Family History - Cardiac/Respiratory: COPD Family History - Cancer: No pertinent family hx - Social History Living Situations: home Abuse History: No History of abuse Psych History: Hx of Anxiety, Current tx/ever been on anti-depressants or anti- anxiety meds Does anyone smoke in the home?: No Smoking Status: Never smoker Alcohol Use: none Drug Use: none - Immunizations Immunizations Up to Date: Yes Hx Pneumococcal Vaccination: No History of Influenza Vaccine: Yes Physical Exam - Physical Exam General Appearance: Present: wd/wn, alert, no apparent distress Eye Exam: Normal inspection: bilateral, PERRL: bilateral, EOMI: bilateral Ears, Nose, Throat: Present: normal ENT inspection, normal pharynx Neck: Present: normal inspection, nontender. Absent: lymphadenopathy (R), lymphadenopathy (L) Respiratory: Present: no respiratory distress, normal breath sounds, no accessory muscle use, chest nontender, lungs clear Cardiovascular/Chest: Present: regular rate, rhythm, no murmur, normal peripheral pulses Gastrointestinal/Abdominal: Present: tenderness - RUQ, other - tympanic Back Exam: Present: normal inspection, normal range of motion, no CVA tenderness , no vertebral tenderness Extremity Exam: Present: normal inspection, non-tender, normal range of motion, no edema Neurological Exam: Present: alert, oriented, normal mood/affect, no motor/ sensory deficits Skin Exam: Present: normal color, warm/dry. Absent: pallor, skin rash ED Progress - Results and Orders Patient's Lab Results:: I have reviewed the patient's lab results. - Vital Signs Patient's Vital Signs:: I have reviewed the patient's vital signs. Vital Signs: Vital Signs 08/30/16 08/30/16 08/30/16 10:27 11:25 17:13 Temperature 36.5 C 36.9 C Pulse Rate 97 Respiratory 16 Rate Blood Pressure 118/73 112/70 O2 Sat by Pulse 97 Oximetry - X-Ray X-Ray #1 X-Ray: chest Interpretation: Reviewed by me X-ray Comments: R gail diaphragm with free air. - CT/Ultrasound CT/Ultrasound Narrative: abd CT with post op air noted in abdomen but no leakage of oral contrast noted. - Progress/Reassessment Chief Complaint: Dyspnea Progress:: Improved Departure Clinical Impression: Post-operative pain, Surgical pneumoperitoneum - Departure Disposition: Home self-care Condition: Good Instructions: Laparoscopic Tubal Ligation, Care After Additional Instructions: Please follow up with [facility] [employer] REPRESENTATIVE tomorrow and move from side to side to move the aiur around and cough and deep breath every two hours. Referrals: Sarah Barlow DO [Primary Care Provider] -
[2016-08-30] MEDS ORDERED: DIATRIZOATE MEGLU/DIATRIZO SOD 30 ML BTL ONE (18:43)
[2016-08-30] MEDS ORDERED: oxyCODONE HCL/ACETAMINOPHEN 1 TAB TABLET ONE (18:43)
[2016-08-30] MEDS ORDERED: ONDANSETRON HCL/PF 2 MG/ML VIAL IV ONE (19:01)
[2016-08-30] MEDS ORDERED: ONDANSETRON HCL/PF 2 MG/ML VIAL ONE (19:03)
[2016-08-30 20:29] LABS: Anion Gap 11.9 mmol/L (6.8-13.8); BUN/Creatinine Ratio 7.1 (9.0-21.6); Bilirubin, Total 0.4 mg/dL (0.0-1.1); Ca. Corrected For Albumin 8.9 mg/dL (8.4-10.2); Calcium * 9.2 mg/dL (7.9-10.9); Carbon Dioxide 27.3 mmol/L (24-32.6); Potassium 4.2 mmol/L (3.4-4.6); Total Protein 7.7 gm/dL (6.2-8.2)
[2016-08-31 03:11] VITALS: BP 108/64
== END 2016-08-30 23:00 | disposition home or self-care (01) ==
LOC: ER 17:03
DX: G89.18 Other acute postprocedural pain (principal); K66.8 Other specified disorders of peritoneum; F41.9 Anxiety disorder, unspecified; I10 Essential (primary) hypertension; K21.9 Gastro-esophageal reflux disease without esophagitis

== ENCOUNTER 2016-10-20 21:21 | Emergency (ER) | payer BC, MEDICAID ==
--- NOTE | 2016-10-20 22:42 | ERNOTE ---
Abdominal HPI - General Chief Complaint: Constipation Time Seen by Provider: 10/20/16 22:33 Source: patient Exam Limitations: no limitations - Immun/Allergies/Home Medications Immunizatons: IMMUNIZATION HX Immunizations Up to Date Yes History of Influenza Vaccine Yes Hx Pneumococcal Vaccination No Allergies/Adverse Reactions: Allergies bacitracin [From Cortisporin] Allergy (Verified 10/20/16 21:31) bacitracin zinc [From Cortisporin] Allergy (Verified 10/20/16 21:31) hydrocortisone [From Cortisporin] Allergy (Verified 10/20/16 21:31) neomycin [From Cortisporin] Allergy (Verified 10/20/16 21:31) neomycin sulfate [From Cortisporin] Allergy (Verified 10/20/16 21:31) polymyxin B [From Cortisporin] Allergy (Verified 10/20/16 21:31) polymyxin B sulfate [From Cortisporin] Allergy (Verified 10/20/16 21:31) acetaminophen [From Percocet] Adverse Reaction (Mild, Verified 10/20/16 21:31) Itching amoxicillin trihydrate [From Augmentin] Adverse Reaction (Mild, Verified 21:31) Nausea erythromycin base Adverse Reaction (Mild, Verified 10/20/16 21:31) GI UPSET, RASH oxycodone HCl [From Percocet] Adverse Reaction (Mild, Verified 10/20/16 21:31) Itching potassium clavula *RETIRED-11/25/12 [From Augmentin] Adverse Reaction (Mild, Verified 10/20/16 21:31) Nausea Sulfa (Sulfonamide Antibiotics) [Sulfa(Sulfonamide Antibiotics)] Adverse Reaction (Mild, Verified 10/20/16 21:31) RASH, VOMITING Home Medications: HOME MEDICATIONS valACYclovir HCL [Valtrex] 1,000 mg PO DAILY 01/31/14 [Last Taken 11/20/14 08:00 ] Lansoprazole [Prevacid] 30 mg PO DAILY 09/07/15 [Last Taken Unknown] Metoprolol Tartrate [Lopressor] 25 mg PO DAILY 04/06/16 [Last Taken 08/30/16 06: 15] Venlafaxine HCl [Effexor Xr] 75 mg PO DAILY 07/13/16 [Last Taken Unknown] Prazosin HCl [Minipress] 1 mg PO DAILY 08/24/16 [Last Taken Unknown] Rizatriptan Benzoate [Maxalt] 10 mg PO DAILY PRN 08/24/16 [Last Taken Unknown] - History of Present Illness Narrative: Pt reports constipation x 2 weeks. She tried a stool softener last night and this AM with some liquid but no stool. Tried an OTC enema with some mucous and blood specks in return Timing: constant Quality: moderate Activities at Onset: none Review of Systems - Review of Systems Constitutional: Present: fatigue. Absent: recent illness, fever EYE: Present: no symptoms reported ENT: Present: no symptoms reported Respiratory: Present: no symptoms reported Cardiology: Present: no symptoms reported Gastrointestinal/Abdominal: Present: See HPI, eating less, drinking less Genitourinary: Present: no symptoms reported Musculoskeletal: Present: no symptoms reported Skin: Present: no symptoms reported Neurological: Present: no symptoms reported Endocrine: Present: no symptoms reported Hematologic/Lymphatic: Present: no symptoms reported Psych: Present: no symptoms reported - Patient's Past Medical History Patient History - Medical: Anemia, Anxiety, GERD, Migraines, Renal Failure, UTI' S, Other Patient History - Cardiac/Respiratory: Hypertension Patient History - Cancer: No Hx of Cancer Patient History - Surgical Procedures: , D & C, Ear Tubes, Tubal Ligation, Other, ENT Patient History - Other: None LMP (females 10-50): 2 months LMP (Calendar): 08/17/16 - Family History Mother Family History - Medical: Diabetes Type 2 Family History - Cardiac/Respiratory: No pertinent hx Family History - Cancer: No pertinent family hx Father Family History - Medical: No pertinent hx Family History - Cardiac/Respiratory: COPD Family History - Cancer: No pertinent family hx - Social History Living Situations: significant other Abuse History: No History of abuse Psych History: Hx of Anxiety, Current tx/ever been on anti-depressants or anti- anxiety meds Does anyone smoke in the home?: No Smoking Status: Former smoker Alcohol Use: none Drug Use: none - Immunizations Immunizations Up to Date: Yes Hx Pneumococcal Vaccination: No History of Influenza Vaccine: Yes Physical Exam - Physical Exam General Appearance: Present: wd/wn, alert, no apparent distress Neck: Present: normal inspection, supple Respiratory: Present: no respiratory distress, no accessory muscle use Gastrointestinal/Abdominal: Present: soft - in general with some firmness to LUQ , tenderness - RLQ and LUQ.. Absent: guarding, rebound Extremity Exam: Present: normal inspection, normal range of motion, no edema Neurological Exam: Present: alert, oriented, normal mood/affect Skin Exam: Present: normal color, warm/dry, other - new tattoo on right leg covered with clear plastic. No erythema ED Progress - Results and Orders Patient's Lab Results:: I have reviewed the patient's lab results. Results and Orders: Laboratory Tests 10/20/16 10/20/16 22:59 22:59 WBC 12.8 H Hgb 13.8 Hct 40.4 Neutrophils % 76.4 H Sodium 142 Potassium 3.6 Chloride 104 Carbon Dioxide 29.4 Anion Gap 12.2 BUN 11 D Creatinine 0.75 Est GFR (Non-Af Amer) 91 BUN/Creatinine Ratio 14.7 Random Glucose 113 H Calcium 9.2 Total Bilirubin 0.6 AST 16 ALT 27 Alkaline Phosphatase 58 Total Protein 7.5 Albumin 4.0 - Vital Signs Patient's Vital Signs:: I have reviewed the patient's vital signs. Vital Signs: Vital Signs 10/20/16 10/20/16 21:24 22:30 Temperature 36.4 C L 36.6 C Pulse Rate 100 88 Respiratory 14 Rate Blood Pressure 148/78 131/69 O2 Sat by Pulse 99 99 Oximetry - X-Ray X-Ray #1 X-Ray: abdomen Interpretation: Interp. by me X-ray Comments: minimal stool on right side. no a/f levels - CT/Ultrasound CT/Ultrasound Narrative: Right groin subcutaneous stranding and right lateral hip region skin thickening and subQ stranding not seen previously. no focal fluid collection Previously noted ascites and pneumoperitoneum resolved appendix not visualized. No secondary inflammatory changes in the RLQ. Endometrial stripe again prominent Otherwise WNL. - Progress/Reassessment Chief Complaint: Constipation Progress:: Unchanged Progress Note-Subjective: 10/21/16 00:24 discussed elevated WBC and lack of findings on the xray to explain that finding. Ordered CT abd/pelvis 10/21/16 03:23 Pt went to the bathroom before being discharged, she came out of the bathroom with a specimen container filled with toilet paper and a long round material interwoven. Specimen taken to lab and was placed in formalin by pathology lab technician. Appears to be an intestinal parasite. Will be sent off for ID. Departure - Departure Clinical Impression: Gas pain Disposition: Home Follow Up Needed Condition: Good Instructions: Abdominal Pain, Adult, [id number] Additional Instructions: You may try gas-x for a few days. If we find anything on the specimen that you gave us someone will call you with results. Follow up with your regular doctor if not improving Referrals: Sarah Barlow, DO [Primary Care Provider] -
[2016-10-20 23:01] LABS: Hematocrit 40.4 % (37.0-47.0); Hemoglobin 13.8 gm/dL (12.5-16.0); Mean Cell Volume 95.5 fl (78-100); Mean Corpuscular Hemoglobin 32.6 pg (27-31); Mean Corpuscular Hgb Conc 34.2 g/dl (32-36); Mean Platelet Volume 9.7 fl (6.0-9.5); Neutrophil # 9.8 K/mm3 (1.3-6.0); Neutrophil % 76.4 % (42-75.0); Platelet Count 241 K/mm3 (150-450); Red Blood Count 4.23 M/mm3 (4.2-5.4); Red Cell Distribution Width 12.2 % (11.5-14.0); White Blood Count 12.8 K/mm3 (4.0-10.5)
[2016-10-20 23:16] LABS: Anion Gap 12.2 mmol/L (6.8-13.8); BUN/Creatinine Ratio 14.7 (9.0-21.6); Bilirubin, Total 0.6 mg/dL (0.0-1.1); Ca. Corrected For Albumin 8.9 mg/dL (8.4-10.2); Calcium * 9.2 mg/dL (7.9-10.9); Carbon Dioxide 29.4 mmol/L (24-32.6); Potassium 3.6 mmol/L (3.4-4.6); Total Protein 7.5 gm/dL (6.2-8.2)
[2016-10-21] MEDS ORDERED: DIATRIZOATE MEGLU/DIATRIZO SOD 30 ML BTL PO ONE (00:04)
[2016-10-21] MEDS ORDERED: DIATRIZOATE MEGLU/DIATRIZO SOD 30 ML BTL ONE (00:05)
[2016-10-21 03:21] VITALS: BP 124/66
== END 2016-10-21 03:15 | disposition home or self-care (01) ==
LOC: ER 21:21
DX: R14.1 Gas pain (principal); G43.909 Migraine, unspecified, not intractable, without status migrainosus; I10 Essential (primary) hypertension; K21.9 Gastro-esophageal reflux disease without esophagitis